=== PATIENT | female | born 1965 | race Caucasian/White ===

== ENCOUNTER → 2016-12-30 | Outpatient (CLI) | payer BC ==
--- NOTE | 2016-12-30 14:58 | REPMRS ---
Patient History The patient states she had a clinical breast exam in 12/27 Family history of breast cancer in paternal aunt at age 50 or over and breast cancer in paternal grandmother at age 50 or over. Taking hormonal contraceptives for 24 years. Digital Woman Screen Mammo: December 30, 2016 - Exam #: [id number] Bilateral CC and MLO view(s) were taken. Technologist: Nivia Rees, Technologist Prior study comparison: September 21, 2015, digital woman screen mammo performed at [facility]. August 11, 2014, digital woman screen mammo performed at [facility]. FINDINGS: The breast tissue is heterogeneously dense. This may lower the sensitivity of mammography. There has been no change in the appearance of the mammogram from the prior studies. There is a moderate amount of residual fibroglandular tissue which is fairly symmetric. There is no interval development of dominant mass, areas of architectural distortion, or clustered microcalcification typical of malignancy. ASSESSMENT: BI-RADS/ACR category 1 mammogram. Negative. Recommendation Routine screening mammogram in 1 year (for women over age 40). This mammogram was interpreted with the aid of an FDA-approved computer-aided dectection system. Electronically Signed By: Dannie Schreiber MD 12/30/16 [id number]
== END ==
LOC: M WHC 13:56
PROVIDERS: ATTEND Nurse Practitioner Family
DX: Z12.31 Encounter for screening mammogram for malignant neoplasm of breast (principal)

== ENCOUNTER → 2017-12-31 | Outpatient (REF) | payer BC | LOC: M SFHCWAGY 14:07 | DX: Z12.4 Encounter for screening for malignant neoplasm of cervix (principal) | CPT/HCPCS: G0123 ==

== ENCOUNTER → 2017-12-31 | Outpatient (CLI) | payer BC | LOC: M WHC 13:51 | DX: Z12.31 Encounter for screening mammogram for malignant neoplasm of breast (principal); Z80.3 Family history of malignant neoplasm of breast; Z79.3 Long term (current) use of hormonal contraceptives | CPT/HCPCS: 77067 ==

== ENCOUNTER → 2019-03-04 | Outpatient (CLI) | payer BC ==
--- NOTE | 2019-03-04 15:55 | REPMRS ---
Patient History The patient states she had a clinical breast exam in 02/2019. Family history of breast cancer at age 50 or over in paternal grandmother, breast cancer at age 50 or over in paternal aunt. Taking hormonal contraceptives for 26 years 2 months. 3D TOMOSYNTHESIS WAS PERFORMED. Digital Woman Screen Mammo: March 04, 2019 - Exam #: [id number] Bilateral CC and MLO view(s) were taken. Technologist: Enma Valdes Technologist Prior study comparison: December 31, 2017, digital woman screen mammo performed at [place]. December 30, 2016, digital woman screen mammo performed at [facility]. FINDINGS: The breast tissue is extremely dense which could obscure a lesion on mammography. There is no evidence of cancer on this mammogram. No significant changes when compared with prior studies. Assessment: BI-RADS/ACR category 2 mammogram. Benign Findings. Recommendation Routine screening mammogram of both breasts in 1 year (for women over age 40). This mammogram was interpreted with the aid of an FDA-approved computer-aided dectection system. Electronically Signed By: Dannie Schreiber MD 03/04/19 [id number]
== END ==
LOC: M WHC 14:33
PROVIDERS: ATTEND Nurse Practitioner Family
DX: Z12.31 Encounter for screening mammogram for malignant neoplasm of breast (principal); Z80.3 Family history of malignant neoplasm of breast

== ENCOUNTER → 2019-03-04 | Outpatient (REF) | payer BC ==
[2019-03-06 15:17] LABS: HPV HYBRID CAPTURE II Negative (Negative)
== END ==
LOC: M SFHCWAGY 15:42
PROVIDERS: ATTEND Nurse Practitioner Family
DX: Z12.4 Encounter for screening for malignant neoplasm of cervix (principal)
CPT/HCPCS: 87624; G0123

== ENCOUNTER → 2019-03-25 | Outpatient (CLI) | payer BC ==
--- NOTE | 2019-03-25 17:15 | REP ---
Pelvic sonography: History: Right lower quadrant pain. Findings: Transabdominal and transvaginal scanning are performed. Uterine dimensions are normal at 7.6 x 3.8 x 5.0 cm. Endometrial echo is 0.5 cm thick. Uterus is somewhat retroverted. There is a Nabothian cyst. No focal uterine mass is seen. Visualized urinary bladder edge are smooth. Normal ovaries are seen bilaterally. Right ovarian dimensions are 1.4 x 1.1 x 2.3 cm. The left ovary measures 1.9 x 1.3 x 1.0 cm. Ovarian Doppler flow is normal bilaterally. Resistive indices are 0.47 on the right and 0.48 on the left. Impression: Somewhat retroverted uterus. Nabothian cyst. Otherwise normal pelvic sonography.
== END ==
LOC: M WHC 14:24
PROVIDERS: ATTEND Nurse Practitioner Family
DX: N88.8 Other specified noninflammatory disorders of cervix uteri (principal)

== ENCOUNTER → 2019-05-20 | Outpatient (REF) | payer BC | LOC: M SFHCWAGY 15:15 | PROVIDERS: ATTEND Nurse Practitioner Family | DX: R87.615 Unsatisfactory cytologic smear of cervix (principal) ==

== ENCOUNTER → 2020-03-23 | Outpatient (CLI) | payer BC ==
--- NOTE | 2020-03-23 16:38 | REPMRS ---
Patient History The patient states she had a clinical breast exam in March 2020. Family history of breast cancer at age 50 or over in paternal grandmother, breast cancer at age 50 or over in paternal aunt. Taking hormonal contraceptives for 26 years 2 months. 3D TOMOSYNTHESIS WAS PERFORMED. The Judit Smith lifetime risk for breast cancer is 15.6%. VOLRUBENSA BHUPINDER C. Digital Woman Screen Mammo: March 23, 2020 - Exam #: [id number] Bilateral CC and MLO view(s) were taken. Technologist: Nadira Beltran, Technologist Prior study comparison: March 04, 2019, bilateral digital woman screen mammo performed at [facility]. December 31, 2017, digital woman screen mammo performed at [facility]. FINDINGS: The breast tissue is heterogeneously dense. This may lower the sensitivity of mammography. There has been no change in the appearance of the mammogram from the prior studies. There is a moderate amount of residual fibroglandular tissue which is fairly symmetric. There is no interval development of dominant mass, areas of architectural distortion, or clustered microcalcification typical of malignancy. Assessment: BI-RADS/ACR category 1 mammogram. Negative Mammogram. Recommendation Routine screening mammogram in 1 year (for women over age 40). This mammogram was interpreted with the aid of an FDA-approved computer-aided dectection system. Electronically Signed By: Dannie Schreiber MD 03/23/20 [id number]
== END ==
LOC: M WHC 14:57
PROVIDERS: ATTEND Nurse Practitioner Family
DX: Z12.31 Encounter for screening mammogram for malignant neoplasm of breast (principal); Z80.3 Family history of malignant neoplasm of breast

== ENCOUNTER → 2021-05-22 | Outpatient (REF) | payer BC | LOC: M SFHCWAGY 19:26 | PROVIDERS: ATTEND Nurse Practitioner Women's Health | DX: Z12.4 Encounter for screening for malignant neoplasm of cervix (principal) | CPT/HCPCS: 87624; G0123 ==

== ENCOUNTER → 2021-05-22 | Outpatient (CLI) | payer BC ==
--- NOTE | 2021-05-22 16:22 | REPMRS ---
Patient History The patient states she had a clinical breast exam in May 2021. Family history of breast cancer at age 50 or over in paternal grandmother, breast cancer at age 50 or over in paternal aunt. Taking hormonal contraceptives for 27 years 2 months. 15-20 lb intentional weight loss. covid vaccine 01/09/21 left arm. 02/06/21 left arm. Patient states no breast complaints today. Patient has signed MRS History Sheet. Digital Woman Screen Mammo: May 22, 2021 - Exam #: [id number] Bilateral CC and MLO view(s) were taken. Technologist: RT Viktor Prior study comparison: March 23, 2020, bilateral digital woman screen mammo performed at [facility]. March 04, 2019, bilateral digital woman screen mammo performed at [facility]. December 31, 2017, digital woman screen mammo performed at [facility]. FINDINGS: The breast tissue is heterogeneously dense. This may lower the sensitivity of mammography. The Volpara volumetric breast density category is: C. There is a moderate amount of heterogeneously dense fibroglandular tissue which is fairly symmetric. There is no interval development of dominant mass, architectural distortion, or grouped microcalcification typical of malignancy. There has been no change in the appearance of the mammogram from the prior studies. 3-D tomosynthesis shows no additional findings. Assessment: BI-RADS/ACR category 1 mammogram. Negative Mammogram. Recommendation Routine screening mammogram of both breasts in 1 year (for women over age 40). This patient's [facility] Lifetime Breast Cancer RIsk is estimated at 15.3 %. This mammogram was interpreted with the aid of an FDA-approved computer-aided dectection system. Electronically Signed By: Galileo Summers MD 05/22/21 [id number]
== END ==
LOC: M WHC 14:37
PROVIDERS: ATTEND Nurse Practitioner Women's Health
DX: Z12.31 Encounter for screening mammogram for malignant neoplasm of breast (principal); Z80.3 Family history of malignant neoplasm of breast

== ENCOUNTER → 2023-02-18 | Outpatient (CLI) | payer BC, OTHER | LOC: M WHC 14:06 | PROVIDERS: ATTEND Nurse Practitioner Family | DX: Z12.31 Encounter for screening mammogram for malignant neoplasm of breast (principal) ==

== ENCOUNTER → 2023-02-18 | Outpatient (REF) | payer OTHER | LOC: M SFHCWAGY 18:01 | PROVIDERS: ATTEND Nurse Practitioner Family | DX: Z12.4 Encounter for screening for malignant neoplasm of cervix (principal) | CPT/HCPCS: 87624; G0123 ==

== ENCOUNTER → 2023-08-11 | Outpatient (CLI) | payer OTHER | LOC: M WHC 14:48 | PROVIDERS: ATTEND Nurse Practitioner Family | DX: E55.9 Vitamin D deficiency, unspecified (principal); Z82.62 Family history of osteoporosis ==

== ENCOUNTER → 2024-07-27 | Outpatient (CLI) | payer OTHER | LOC: M WHC 14:43 | PROVIDERS: ATTEND Nurse Practitioner Family | DX: Z12.31 Encounter for screening mammogram for malignant neoplasm of breast (principal); R92.343 Mammographic extreme density, bilateral breasts ==